=== PATIENT | female | born 1980 | race Caucasian/White ===

== ENCOUNTER → 2025-01-06 13:19 | Outpatient (REF) | payer BC, SELFPAY | LOC: PAVMRI 13:19 | PROVIDERS: ATTENDING PHYSICIAN Nurse Practitioner Adult Health | DX: N70.11 Chronic salpingitis (principal); Z80.41 Family history of malignant neoplasm of ovary; D25.9 Leiomyoma of uterus, unspecified | CPT/HCPCS: 72197; A9575 ==

== ENCOUNTER 2025-09-29 17:16 | Emergency (ER) | payer BC, SELFPAY ==
[2025-09-29 17:18] VITALS: BP 150/99
[2025-09-29 17:55] LABS: Hematocrit 39.6 % (37.0-47.0); Hemoglobin 13.7 g/dL (12.0-16.0); Mean Corp Hgb Conc. 34.6 g/dL (33.0-37.0); Mean Corpuscular Volume 96.1 fL (81.0-99.0); Nucleated Red Blood Cells % 0 %; Platelet Count 261 10^3/uL (130-400); Red Cell Dist. Width 13.2 % (11.5-14.5)
[2025-09-29 18:05] LABS: HCG, Serum Qualitative Screen Negative
[2025-09-29 18:06] LABS: Urine Character Clear (Clear)
[2025-09-29 18:10] LABS: ALT (SGPT) 23 U/L (0-35); AST (SGOT) 25 U/L (14-36); Albumin 4.7 g/dl (3.5-5.0); Alkaline Phosphatase 40 U/L (38-126); Blood Urea Nitrogen 14 mg/dl (7-17); Calcium 9.4 mg/dl (8.4-10.2); Carbon Dioxide 28 mmol/L (22-30); Chloride 97 mmol/L (98-107); Glucose 101 mg/dl (70-99); Potassium 3.8 mmol/L (3.5-5.1); Sodium 133 mmol/L (135-145); Total Protein 7.7 g/dl (6.3-8.2); eGFR > 60.00
[2025-09-29 18:18] LABS: Urine Squamous Cell >30 /LPF (Few)
--- NOTE | 2025-09-29 19:20 | ED.GENMED ---
History of Present Illness
General
Chief Complaint: Flank Pain
Time Seen by Provider: 09/29/25 19:20
History of Present Illness
History of Present Illness:
FOCUSED PAST MEDICAL HISTORY
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
REVIEW OF OLD RECORDS
- The patient was admitted to the hospital with dehydration in June 2011
Note:
CHIEF COMPLAINT(S)
Chills, sweats, and lower back pain.
HISTORY OF PRESENT ILLNESS
The patient is a 45-year-old female who presented with chills and sweats. She reports experiencing these symptoms intermittently, describing the episodes as severe and difficult to tolerate. The patient denies any respiratory symptoms or significant
fever at home, noted to be around 99�F. She mentions sharp pains in her lower back and previously tested positive for a urinary tract infection (UTI) at an urgent care facility. Despite this diagnosis, she still reports lower back pain and chills.
The patient notes a transition in her menstrual cycle, mentioning brown and malodorous discharge persisting for three days, coinciding with her symptoms. The urinalysis today showed a normal number of white blood cells, suggesting no active UTI.
However, a CT scan is planned to evaluate for potential kidney stones, and blood cultures are to be obtained to rule out bloodstream infection.
EXTERNAL RECORDS REVIEWED
The patient mentioned that further testing was done at an urgent care facility in [place] with results pending as communicated by her primary care doctor.
PHYSICAL EXAM
General: She is crying, in tears, but denies current pain
Skin: Warm, dry.
Head: Normocephalic, atraumatic.
Neck: Supple, trachea midline.
Eye Ears, nose, mouth and throat: Oral mucosa moist.
Cardiovascular: Normal peripheral perfusion, no edema.
Respiratory: Respirations are non-labored.
Gastrointestinal: Abdomen nondistended; no pain upon palpation reported.
: No cervical motion tenderness, no significant discharge, no foul smell
Back: Normal range of motion, some mild tenderness in the lumbar region as opposed to right CVA region
Musculoskeletal: Normal ROM, normal strength.
Neurological: Alert and oriented to person, place, time, and situation, no focal neurological deficit observed.
Psychiatric: Cooperative, tearful at times
PROBLEM LIST
Acute Problems:
- Intermittent chills and sweats
- Sharp lower back pain
- Abnormal menstrual cycle with malodorous discharge
- Suspected urinary tract infection
PLAN
1. Obtain a CT scan to assess for kidney stones or any abnormalities.
2. Perform blood cultures to investigate potential bloodstream infection.
3. Consider intravenous fluid administration to address patient claims of feeling unwell.
4. Await further test results from urgent care for additional information on the initial UTI diagnosis.
5. Arrange for a pelvic examination to assess cervical tenderness and discharge, contingent upon patients consent and availability of a female staff member.
6. Discuss options for pain management, although the patient has expressed a preference not to receive pain medications at this time.
DIFFERENTIAL DIAGNOSIS
The Differential Diagnosis includes, in no particular order and is not limited to:
- Pyelonephritis
- Kidney stones
- Pelvic inflammatory disease
- Cervicitis
- Ureteral stones
- Ectopic
- Endometriosis
- Bacterial vaginosis
- Urinary tract infection
- Viral illness
RADIOLOGY
- CT obtained
LABS
- Urinalysis shows 2+ blood, 1+ ketones, 3-5 white cells, greater than 30 epithelial cells. Lactic acid normal. TSH normal.
UPDATE
-SUMMARY OF ENCOUNTER
The patient, a 45-year-old female, presented to the emergency department with intermittent chills, sweats, and sharp lower back pain. She has a history suggestive of a urinary tract infection but denies typical urinary symptoms. A CT scan was
performed which showed no kidney stones or significant abnormalities. The patient had a minimally elevated white blood cell count and normal lactic acid levels, ruling out a bloodstream infection. The thyroid function tests were normal. Blood
cultures are pending. The urinalysis did not show significant evidence of infection. The patients symptoms might be attributed to a possible viral syndrome, and she reports some relief from pain with ibuprofen and chose not to receive further pain
management in the form of ketorolac.
DISPOSITION
Discharge.
ASSESSMENT
The patients symptoms are likely due to a non-specific viral syndrome, evidenced by intermittent chills and an absence of urinary tract infection indicators.
PLAN
1. Discharge the patient as there was no significant infection or renal pathology.
2. Advise continuation of ibuprofen for pain relief as needed.
3. Await results of pending blood cultures.
4. Educate the patient on signs of worsening symptoms that would necessitate further medical evaluation.
5. Encourage follow-up with her primary care physician for continuity of care and pending test results.
INDEPENDENT REVIEW OF LABS AND INTERPRETATION OF TESTS
My independent review of the complete blood count (CBC) shows a minimally elevated white blood cell count.
My independent review of the lactic acid test indicates normal levels.
My independent review of thyroid function tests shows normal results.
ADDITIONAL TESTING AND IMAGING CONSIDERED
A urine culture may be considered if future symptoms suggest a urinary tract infection.
PATIENT EDUCATION AND COUNSELING
The patient was informed about the potential viral nature of her symptoms and the expected course. She was advised on the use of [id number]-[id number] medication for pain management and instructed on signs that would require immediate medical attention.
FOLLOW-UP INSTRUCTIONS
Please call the office immediately to schedule a follow-up visit with a primary care physician.
MEDICATION RECONCILIATION
The patient used ibuprofen (Advil) at home for pain management.
MEDICAL DECISION MAKING
-Complexity of Data Reviewed: Chronic conditions affecting care. Differential Diagnosis: Pyelonephritis, Kidney stones, Pelvic inflammatory disease, Cervicitis, Ureteral stones, Ectopic , Endometriosis, Bacterial vaginosis, Urinary tract
infection, Viral illness.
-Data:
Category 1
Non-emergency department records reviewed. External record reviewed: pending test results from an urgent care visit were reviewed.
Category 2
No independent interpretation of imaging as the CT scan was assessed during the visit.
Category 3
No consultation with other healthcare providers in this visit.
-Risk:
Consideration of Admission/Observation: Escalation of care including admission/observation was considered given the complexity and risk of the patients presenting complaint, exam findings, and/or their underlying comorbidities. However, ultimately I
feel the patient is safe for outpatient management with close follow-up. Reasoning: Work-up reassuring, does not reveal any acute life/organ-threatening processes, patients symptoms well controlled upon reevaluation, reexamination is reassuring,
vitals are stable, patient agreeable with discharge, reliable for follow-up.
DIAGNOSIS
Possible viral syndrome (ICD-10: B34.9).
Lower back pain (ICD-10: M54.5).
Chills
Unclear etiology of patient's symptoms. She initially declined analgesia. On reassessment at around 10:45 PM, she said the pain recurred however CT imaging is reassuring. Will give a dose of Toradol. One of her main symptom is ongoing chills.
Blood cultures are pending. Lactic acid is normal. Minimal leukocytosis is noted. We talked about the possibly of a viral syndrome. Lymphocytopenia is noted.
Past History
Past History
ED Past Medical History: Other (Hypoglycemia)
ED Past Surgical History: None
Social History
Tobacco: Non-smoker
Alcohol: None
Drug: None
Personal:
Living: with family
Employment: Employed
Family History
Family History: Other (Noncontributory)
Phy Exam
Physical Exam
Physical Exam:
See HPI
Course
Orders/Labs/Results
Orders:
Orders
09/29/25 17:23
Test Result ONCE
09/29/25 17:32
Urinalysis Reflex To Culture Urgent
Date Specimen was Collected: 09/29/25
Time Specimen was Collected: 17:23
Urine Microscopic Reflex Cult Urgent
11/24/25 17:34
Complete Blood Count/With Diff Urgent
Comprehensive Metabolic Panel Urgent
HCG, Serum Qualitative Screen Urgent
TSH Reflex To Free T4 Urgent
Comment: ADD ON
09/29/25 19:22
CT Abd/pel Without Iv Or Oral Urgent
Comment:
Reason For Exam: R flank pain
09/29/25 19:29
0.9% Sodium Chloride 1000 ml [Nss] 1,000 ml IV BOLUS
09/29/25 19:34
Add On- LAB Urgent
Tests Added?: tsh reflex fT4
09/29/25 19:44
Lactic Acid Q4H
Comment: CANCEL 2nd LACTIC ACID IF 1st LACTIC ACID IS LESS THAN 2
Blood Culture Q30M
IVETTE Source: Blood/Venous
Specimen Description:
Blood Culture Q30M
IVETTE Source: Blood/Venous
Specimen Description:
09/29/25 19:54
Chlamydia/GC by PCR Urgent
IVETTE Source: Urine
Specimen Description:
Source:: URINE
Date Specimen was Collected: 09/29/25
Time Specimen was Collected: 19:34
09/29/25 23:30
Lactic Acid Q4H
Comment: CANCEL 2nd LACTIC ACID IF 1st LACTIC ACID IS LESS THAN 2
Abnormal Lab Results
09/29/25 09/29/25
17:32 17:34
WBC 11.3 H 10^3/uL
(4.8-10.8)
RBC 4.12 L 10^6/uL
(4.20-5.40)
MCH 33.3 H pg
(27.0-31.0)
Absolute Neuts (auto) 9.2 H 10^3/uL
(1.4-6.5)
Absolute Lymphs (auto) 1.1 L 10^3/uL
(1.2-3.4)
Absolute Monos (auto) 1.0 H 10^3/uL
(0.1-0.6)
Neutrophils % 81.0 H %
(42.2-75.2)
Lymphocytes % 9.4 L %
(20.5-51.1)
Sodium 133 L mmol/L
(135-145)
Chloride 97 L mmol/L
(98-107)
Glucose 101 H mg/dl
(70-99)
Urine Ketones 1+ A
(Negative)
Ur Occult Blood Reflex 2+ A
(Negative)
Urine RBC 3-6 A /HPF
(0-2)
Urine Bacteria (Reflex) Few A
(Negative)
Urine Albumin (Reflex) 1+ A
(Neg - Trace)
09/29/25 17:34
09/29/25 17:34
Vital Signs
Initial and Last Documented VS:
Initial Vital Signs
Temp Pulse Resp BP Pulse Ox
36.7 C 111 18 150/99 98
09/29/25 17:18 09/29/25 17:18 09/29/25 17:18 09/29/25 17:18 09/29/25 17:18
Last Documented Vital Signs
Temp Pulse Resp BP Pulse Ox
36.7 C 74 18 128/82 97
09/29/25 17:18 09/29/25 20:52 09/29/25 20:52 09/29/25 21:44 09/29/25 21:45
*Pulse Oximetry
SaO2: 98
Oxygen Mode of Delivery: Room air
Patient hypoxic: no
*Critical Care Note
Total Time (30-74mins, 75-104mins- exclusive of procedures): Not Applicable
ED Attending Note
-
Portions of this chart may have been created with voice recognition software.� Occasional wrong word or��sound alike� substitutions may have occurred due to the inherent limitations of voice recognition software.
Discharge Plan
Departure
Prescriptions:
No Action
No Meds [No Current Medications]
Referrals:
NONE,* [Family Provider, Internal Medicine]
Interventions
Interventions:
*Risk Screen - Suicide Last Done: 09/29/25 17:18
*General Assessment Last Done: 09/29/25 17:18
*Neglect/Abuse Screening Last Done: 09/29/25 17:18
*ED- Fall Risk Assessment Last Done: 09/29/25 20:25
*ED COVID-19 Vaccine History Last Done: 09/29/25 20:25
*ED Influenza Vaccine History Last Done: 09/29/25 20:25
TQ-Jowslf-Lhazdourqr Assessment Last Done: 09/29/25 19:30
ED-Female Genitourinary Assessment Last Done: 09/29/25 19:30
Discharge Date and Time
Print Language: GEORGIAN
[2025-09-29] MEDS: NSS 1000 IV (19:46)
[2025-09-29 20:52] VITALS: BP 122/77
[2025-09-29 21:44] VITALS: BP 128/82
[2025-09-29] MEDS: TORADOL 15 MG IV (23:01)
[2025-09-29] MEDS: TYLENOL 1000 MG PO (23:06)
== END 2025-09-29 23:10 | disposition home or self-care (01) ==
LOC: EMR 17:16
PROVIDERS: Emergency Medicine; EMERGENCY PHYSICIAN Emergency Medicine
DX: R10.A0 Flank pain, unspecified side (principal)
CPT/HCPCS: 99284; 96374; 96361; 74176; 80053; 81003; 81015; 83605; 84443; 84703; 85025; 87040; 87491; 87591